=== PATIENT | female | born 1940 | race African-American/Black ===

== ENCOUNTER 2017-03-16 20:38 | Inpatient (IN) | payer OTHER, MEDICAID ==
[~2017-03-16] VITALS: Ht 158.8 cm; Wt 113.4 kg
[2017-03-16] MEDS ORDERED: TRAMADOL 50MG TABLET PO ONE (21:30)
[2017-03-16 21:44] LABS: EOSINOPHILS % 2.5 % (0.0-5.0); HEMOGLOBIN. 10.8 g/dL (12.0-16.0); MEAN CORPUSCULAR HEMOGLOBIN 28.8 pg (28.0-32.0); MEAN CORPUSCULAR VOLUME 88.1 fL (81.0-99.0); MEAN PLATELET VOLUME 9.1 fl (7.4-10.4); MONOCYTES % 6.5 % (2.0-8.0); PLATELET 201 x1000/uL (130-400); RED BLOOD CELL COUNT 3.75 mill/uL (4.2-5.4); RED CELL DISTRIBUTION WIDTH 14.8 % (11.6-14.6)
[2017-03-16 21:49] LABS: PARTIAL THROMBOPLASTIN TIME 23.4 sec (23.4-31.0); PROTHROMBIN TIME 10.6 sec (9.4-11.6)
[2017-03-16 21:53] LABS: CARBON DIOXIDE 32 mEq/L (21-32); CHLORIDE 106 mEq/L (98-107)
[2017-03-16 22:00] LABS: CREATINE KINASE MB FRACTION 1.4 ng/mL (0.5-3.6); TROPONIN I < 0.02 ng/mL (0.00-0.04)
[2017-03-17] VITALS (7 sets, daily range): BP systolic 130–157; BP diastolic 44–71
[2017-03-17] MEDS: HYDROCODONE/ACETAMINOPHEN 5/325MG TABLET PO PRN ×4 (02:54→22:22)
[2017-03-17] MEDS: SODIUM CHLORIDE 0.9% 1,000 ML IV SCH ×2 (02:56→15:33)
[2017-03-17] MEDS ORDERED: DEXTROSE 50% WATER 50ML SYRINGE IV PRN (07:15)
[2017-03-17 07:24] LABS: HEMOGLOBIN 10.2 g/dL (12.0-16.0); MEAN CORPUSCULAR HEMOGLOBIN 28.6 pg (28.0-32.0); MEAN CORPUSCULAR VOLUME 89.7 fL (81.0-99.0); PLATELET 187 x1000/uL (130-400); RED BLOOD CELL COUNT 3.57 mill/uL (4.2-5.4); RED CELL DISTRIBUTION WIDTH 15.3 % (11.6-14.6)
[2017-03-17] MEDS: BLOOD SUGAR DIAGNOSTIC STRIP TEST SCH ×4 (07:40→22:23)
[2017-03-17] MEDS: INSULIN LISPRO 100 UNITS/ML SUBCUT SCH ×4 (09:16→22:23)
[2017-03-18] VITALS: BP 153/63
[2017-03-18 04:00] VITALS: BP 138/74
[2017-03-18] MEDS: SODIUM CHLORIDE 0.9% 1,000 ML IV SCH ×2 (04:55→10:13)
[2017-03-18 07:03] LABS: BASOPHILS % 0.7 % (0.0-2.0); HEMOGLOBIN. 9.8 g/dL (12.0-16.0); LYMPHOCYTES % 9.6 % (20.0-50.0); MEAN CORPUSCULAR HEMOGLOBIN 28.9 pg (28.0-32.0); MEAN CORPUSCULAR VOLUME 88.8 fL (81.0-99.0); MEAN PLATELET VOLUME 9.5 fl (7.4-10.4); MONOCYTES % 6.5 % (2.0-8.0); NEUTROPHILS % 79.2 % (40.0-76.0); PLATELET 154 x1000/uL (130-400); RED BLOOD CELL COUNT 3.38 mill/uL (4.2-5.4); RED CELL DISTRIBUTION WIDTH 15.3 % (11.6-14.6)
[2017-03-18] MEDS: BLOOD SUGAR DIAGNOSTIC STRIP TEST SCH ×4 (07:40→21:37)
[2017-03-18 08:00] VITALS: BP 144/70
[2017-03-18] MEDS: INSULIN LISPRO 100 UNITS/ML SUBCUT SCH ×4 (08:32→21:36)
[2017-03-18 11:30] VITALS: BP 147/60
[2017-03-18] MEDS: HYDROCODONE/ACETAMINOPHEN 5/325MG TABLET PO PRN (11:30)
[2017-03-18 12:00] VITALS: BP 151/61
[2017-03-18] MEDS ORDERED: BUPIVACAINE HCL/PF 0.25% (2.5MG/ML) 10ML ONE (13:13)
[2017-03-18] MEDS ORDERED: MORPHINE SULFATE/PF 1MG/ML 10ML AMP ONE (13:13)
[2017-03-18] MEDS ORDERED: NORMAL SALINE 0.9% 10 ML SYR ONE (13:13)
[2017-03-18] MEDS ORDERED: BACITRACIN 50,000 UNITS/VIAL ONE (13:14)
[2017-03-18] MEDS ORDERED: FENTANYL CITRATE/PF 50MCG/ML 2ML VIAL ONE (13:28)
[2017-03-18] MEDS ORDERED: ETOMIDATE 2MG/ML 10ML VIAL IV ONE (13:34)
[2017-03-18] MEDS ORDERED: SUCCINYLCHOLINE CHLORIDE 200MG/10ML VIAL IV ONE ×2 (13:34→13:39)
[2017-03-18] MEDS ORDERED: PHENYLEPHRINE HCL 10 MG/ML 1ML (IV VIAL) IV ONE ×2 (13:34→13:39)
[2017-03-18] MEDS ORDERED: PROPOFOL 200MG/20ML VIAL IV ONE (13:39)
[2017-03-18] MEDS ORDERED: VECURONIUM BROMIDE 10 MG/VIAL IV ONE (13:39)
[2017-03-18] MEDS ORDERED: CEFAZOLIN SODIUM 1000MG/VIAL ONE (14:10)
[2017-03-18] MEDS ORDERED: INSULIN REGULAR (HUMULIN R) 300UNITS/3ML ONE (14:27)
[2017-03-18] MEDS ORDERED: HYDROMORPHONE HCL/PF 2MG/ML (OR) ONE (18:07)
[2017-03-18] MEDS ORDERED: NEOSTIGMINE METHYLSULFATE 1MG/ML 10 ML VIAL ONE (18:11)
[2017-03-18] MEDS ORDERED: GLYCOPYRROLATE 0.2 MG/ML 2ML VIAL ONE (18:11)
[2017-03-18] MEDS ORDERED: SODIUM CHLORIDE 0.9% 10ML VIAL ONE (18:13)
[2017-03-18] MEDS ORDERED: HYDROCODONE/ACETAMINOPHEN 5/325MG TABLET PO PRN ×2 (18:45)
[2017-03-18] MEDS ORDERED: MORPHINE SULFATE 4 MG/ML CPJ (NOT FOR IM USE) IV PRN ×2 (18:45)
[2017-03-18] MEDS ORDERED: ONDANSETRON HCL 4MG/2ML VIAL IV PRN ×2 (18:45→19:00)
[2017-03-18] MEDS ORDERED: MAGNESIUM HYDROXIDE 400MG/5ML 30ML UDC PO PRN (18:45)
[2017-03-18] MEDS ORDERED: ACETAMINOPHEN 325MG TABLET PO PRN (18:45)
[2017-03-18] MEDS ORDERED: ONDANSETRON HCL 4MG/2ML VIAL ONE (18:51)
[2017-03-18] MEDS ORDERED: ONDANSETRON INJ IV PRN (18:55)
[2017-03-18] MEDS ORDERED: DIPHENHYDRAMINE INJ IV PRN (18:55)
[2017-03-18] MEDS ORDERED: NALOXONE INJ IV PRN (18:55)
[2017-03-18] MEDS ORDERED: HYDROMORPHONE PCA 10MG/50ML IV PRN (18:55)
[2017-03-18] MEDS ORDERED: HYDROMORPHONE HCL/PF 2MG/ML CPJ IV PRN (19:00)
[2017-03-18 19:15] LABS: HEMATOCRIT 33.9 % (36.0-48.0)
[2017-03-18 20:00] VITALS: BP 159/54
[2017-03-18] MEDS: CEFAZOLIN 2,000 MG in DEXT 5% WATER 100 ML IV SCH (21:06)
[2017-03-18] MEDS: ENOXAPARIN 30MG/0.3ML SYR SUBCUT SCH (21:35)
[2017-03-19] VITALS: BP 117/63
[2017-03-19 04:00] VITALS: BP 125/64
[2017-03-19 06:08] LABS: BASOPHILS % 0.5 % (0.0-2.0); EOSINOPHILS % 0.8 % (0.0-5.0); HEMATOCRIT. 27.3 % (36.0-48.0); LYMPHOCYTES % 7.3 % (20.0-50.0); MEAN CORPUSCULAR VOLUME 88.1 fL (81.0-99.0); MEAN PLATELET VOLUME 9.6 fl (7.4-10.4); MONOCYTES % 7.4 % (2.0-8.0); PLATELET 132 x1000/uL (130-400); RED CELL DISTRIBUTION WIDTH 15.2 % (11.6-14.6)
[2017-03-19] MEDS: CEFAZOLIN 2,000 MG in DEXT 5% WATER 100 ML IV SCH (06:27)
[2017-03-19] MEDS: SODIUM CHLORIDE 0.9% 1,000 ML IV SCH ×2 (07:35→20:53)
[2017-03-19] MEDS: BLOOD SUGAR DIAGNOSTIC STRIP TEST SCH ×4 (07:37→20:46)
[2017-03-19 08:00] VITALS: BP 118/45
[2017-03-19] MEDS: FERROUS SULFATE 325MG TABLET PO SCH ×3 (08:46→18:08)
[2017-03-19] MEDS: INSULIN LISPRO 100 UNITS/ML SUBCUT SCH ×4 (09:04→20:47)
[2017-03-19] MEDS: DOCUSATE SODIUM 100MG CAPSULE PO SCH ×2 (09:24→17:34)
[2017-03-19] MEDS: ENOXAPARIN 30MG/0.3ML SYR SUBCUT SCH ×2 (09:25→20:47)
[2017-03-19 12:00] VITALS: BP 132/63
[2017-03-19 16:00] VITALS: BP 153/55
[2017-03-19 20:00] VITALS: BP 127/68
[2017-03-20] VITALS (8 sets, daily range): BP systolic 135–153; BP diastolic 53–104
[2017-03-20 06:53] LABS: BASOPHILS % 0.8 % (0.0-2.0); EOSINOPHILS % 4.4 % (0.0-5.0); HEMATOCRIT. 24.2 % (36.0-48.0); HEMOGLOBIN. 8.1 g/dL (12.0-16.0); LYMPHOCYTES % 11.3 % (20.0-50.0); MEAN CORPUSCULAR HEMOGLOBIN 29.5 pg (28.0-32.0); MEAN CORPUSCULAR VOLUME 88.4 fL (81.0-99.0); MEAN PLATELET VOLUME 9.7 fl (7.4-10.4); MONOCYTES % 8.8 % (2.0-8.0); NEUTROPHILS % 74.7 % (40.0-76.0); PLATELET 123 x1000/uL (130-400); RED BLOOD CELL COUNT 2.74 mill/uL (4.2-5.4); RED CELL DISTRIBUTION WIDTH 14.8 % (11.6-14.6)
[2017-03-20] MEDS: DOCUSATE SODIUM 100MG CAPSULE PO SCH ×2 (08:32→18:45)
[2017-03-20] MEDS: FERROUS SULFATE 325MG TABLET PO SCH ×3 (08:32→18:44)
[2017-03-20] MEDS: ENOXAPARIN 30MG/0.3ML SYR SUBCUT SCH (08:32)
[2017-03-20] MEDS: BLOOD SUGAR DIAGNOSTIC STRIP TEST SCH ×4 (08:34→21:00)
[2017-03-20] MEDS: INSULIN LISPRO 100 UNITS/ML SUBCUT SCH ×4 (08:34→21:00)
[2017-03-20] MEDS ORDERED: PANTOPRAZOLE SODIUM 40 MG/VIAL IV SCH (10:15)
[2017-03-20] MEDS ORDERED: FUROSEMIDE 40MG/4ML VIAL IVP SCH (12:45)
[2017-03-21] MEDS ORDERED: PANTOPRAZOLE SODIUM 40 MG/VIAL IV SCH (09:00)
== END 2017-03-20 23:45 | DRG 493 ==
LOC: EDBEDREQ 21:15 → EDBEDREQSVC 21:23 → ER 21:33 → 7WST 23:20 → EDBEDREQTM 23:21 → EDBEDREQ 23:21 → ENRESERV 23:27
PROVIDERS: ADMIT Internal Medicine; ATTEND Internal Medicine
PROC: 30233N1 Transfusion of Nonautologous Red Blood Cells into Peripheral Vein, Percutaneous Approach (ICD-10-PCS; 2017-03-14)
PROC: 0QSG04Z Reposition Right Tibia with Internal Fixation Device, Open Approach (ICD-10-PCS; 2017-03-18)
PROC: 0QSG06Z Reposition Right Tibia with Intramedullary Internal Fixation Device, Open Approach (ICD-10-PCS; principal; 2017-03-18 13:30)
DX: S82.121A Displaced fracture of lateral condyle of right tibia, initial encounter for closed fracture (principal); J96.10 Chronic respiratory failure, unspecified whether with hypoxia or hypercapnia; N17.9 Acute kidney failure, unspecified; I11.0 Hypertensive heart disease with heart failure; I50.9 Heart failure, unspecified; Z68.42 Body mass index [BMI] 45.0-49.9, adult; M25.0 Hemarthrosis; E11.9 Type 2 diabetes mellitus without complications; D64.9 Anemia, unspecified; M19.90 Unspecified osteoarthritis, unspecified site; S82.24 Spiral fracture of shaft of tibia; S82.831A Other fracture of upper and lower end of right fibula, initial encounter for closed fracture; E66.09 Other obesity due to excess calories; W18.30XA Fall on same level, unspecified, initial encounter; Z96.652 Presence of left artificial knee joint; Z79.4 Long term (current) use of insulin; Z90.710 Acquired absence of both cervix and uterus; Z86.73 Personal history of transient ischemic attack (TIA), and cerebral infarction without residual deficits; Y93.89 Activity, other specified; Y92.89 Other specified places as the place of occurrence of the external cause
CPT/HCPCS: 29515; 36415; 70450; 71010; 73030; 73590; 73630; 73700; 80048; 82553; 82962; 83735; 83880; 84484; 85014; 85018; 85025; 85027; 85610; 85730; 86850; 86900; 86920; 93005; 93306; 97163; 97166; 97530; 99285; A4216; C1713; C9113; J0330; J0690; J1170; J1650; J1815; J1940; J2274; J2370; J2405; J2704; J2710; J3010; J3490; J7030; J7060; P9016; Q4051; A4315

== ENCOUNTER 2017-06-02 07:59 | Emergency (ER) | payer MEDICAID, OTHER ==
[~2017-06-02] VITALS: Ht 167.6 cm; Wt 90.0 kg
[2017-06-02 08:46] LABS: BASOPHILS % 0.7 % (0.0-2.0); EOSINOPHILS % 0.9 % (0.0-5.0); HEMATOCRIT. 33.1 % (36.0-48.0); HEMOGLOBIN. 10.5 g/dL (12.0-16.0); LYMPHOCYTES % 14.4 % (20.0-50.0); MEAN CORPUSCULAR HEMOGLOBIN 28.1 pg (28.0-32.0); MEAN CORPUSCULAR VOLUME 89.2 fL (81.0-99.0); MEAN PLATELET VOLUME 8.6 fl (7.4-10.4); MONOCYTES % 5.7 % (2.0-8.0); NEUTROPHILS % 78.3 % (40.0-76.0); PLATELET 244 x1000/uL (130-400); RED BLOOD CELL COUNT 3.71 mill/uL (4.2-5.4); RED CELL DISTRIBUTION WIDTH 15.6 % (11.6-14.6)
[2017-06-02 09:03] LABS: CARBON DIOXIDE 30 mEq/L (21-32); CHLORIDE 107 mEq/L (98-107)
[2017-06-02 09:04] LABS: TROPONIN I < 0.02 ng/mL (0.00-0.04)
[2017-06-02 12:43] VITALS: BP 156/72
== END 2017-06-02 14:28 | disposition home or self-care (01) ==
LOC: ER 08:01
DX: E11.649 Type 2 diabetes mellitus with hypoglycemia without coma (principal); I10 Essential (primary) hypertension; Z86.73 Personal history of transient ischemic attack (TIA), and cerebral infarction without residual deficits; Z79.4 Long term (current) use of insulin
CPT/HCPCS: 36415; 71010; 80053; 82962; 84484; 85025; 93005; 99285